=== PATIENT | female | born 1960 | race Caucasian/White ===

== ENCOUNTER 2018-07-17 22:25 | Emergency (ER) | payer BC, OTHER ==
[2018-07-17 22:31] VITALS: BP 143/73; PULSE 66; TEMP 97.8; BMI 23.0
--- NOTE | 2018-07-17 23:04 | PDOC ---
History of Present Illness - General Chief Complaint: Headache Stated Complaint: HEAD INJURY Time Seen by Provider: 07/17/18 22:38 History Source: Patient Exam Limitations: No Limitations - History of Present Illness Initial Comments: 07/17/18 23:04 HISTORY OF PRESENT ILLNESS: This is a 57-year-old woman without significant medical history who presents emergency Department with headache status post being struck in the head with a sign from [employer]. Patient states she did not lose this time was loose one fell and struck her on the head. She denies any loss of consciousness and has full recollection of events prior to during and after the event. Patient has not expressed any nausea and has not vomited since the event. Patient is ambulatory in the emergency department is being accompanied by her . No recent travel or sick contacts. PAST MEDICAL HISTORY: Denies past medical history SURGICAL HISTORY: Denies ALLERGIES: No known drug allergies REVIEW OF SYSTEMS General/Constitutional: Denies fever or chills. Denies weakness, weight change. HEENT: Denies change in vision. Denies ear pain or discharge. Denies sore throat. Cardiovascular: Denies chest pain or shortness of breath. Respiratory: Denies cough, wheezing, or hemoptysis. Gastrointestinal: Denies nausea, vomiting, diarrhea or constipation. Denies rectal bleeding. Genitourinary: Denies dysuria, frequency, or change in urination. Musculoskeletal: Denies joint or muscle swelling or pain. Denies neck or back pain. Skin and breasts: Denies rash or easy bruising. Neurologic: Endorses generalized headache. Denies vertigo, loss of consciousness , or loss of sensation. Psychiatric: Denies depression or anxiety. Endocrine: Denies increased thirst. Denies abnormal weight change. Hematologic/Lymphatic: Denies anemia, easy bleeding, or history of blood clots. Allergic/Immunologic: Denies hives or skin allergy. Denies latex allergy. PHYSICAL EXAM General Appearance: Well-appearing, appropriately dressed. No apparent distress , no intoxication. HEENT: EOMI, PERRLA, normal ENT inspection, normal voice, TMs normal, pharynx normal. No conjunctival pallor. No photophobia, scleral icterus. Neck: Supple. Trachea midline. No tenderness, rigidity, carotid bruit, stridor , lymphadenopathy, or thyromegaly. Respiratory/Chest: Lungs CTAB. No shortness of breath, chest tenderness, respiratory distress, accessory muscle use. No crackles, rales, rhonchi, stridor , wheezing, dullness Cardiovascular: RRR. S1, S2. No JVD, murmur, bradycardia, tachycardia. Vascular Pulses: Dorsalis-Pedis (R): 2+, Dorsalis-Pedis (L): 2+ Gastrointestinal/Abdominal: Normal bowel sounds. Abdomen soft, non-distended. No tenderness or rebound tenderness. No organomegaly, pulsatile mass, guarding, hernia, hepatomegaly, splenomegaly. Lymphatic: No adenopathy, tenderness. Musculoskeletal/Extremities: Normal inspection. FROM of all extremities, normal capillary refill. Pelvis Stable. No CVA tenderness. No tenderness to extremities, pedal edema, swelling, erythema or deformity. Integumentary: Appropriate color, dry, warm. No cyanosis, erythema, jaundice or rash Neurologic: meat soaker II-XII intact. Fully oriented, alert. Appropriate mood/affect. Motor strength 5/5. No appreciable EOM palsy, facial droop or sensory deficit. Past History - Past Medical History Allergies/Adverse Reactions: Allergies Allergy/AdvReac Type Severity Reaction Status Date / Time codeine [Codeine] Allergy Verified 07/17/18 22:32 Home Medications: Ambulatory Orders No Home Medications 0 dose .ROUTE UTDICT 01/25/13 COPD: No - Surgical History Cholecystectomy: Yes - Immunization History Immunization Up to Date: Yes - Suicide/Smoking/Psychosocial Hx Smoking Status: No Smoking History: Never smoked Number of Cigarettes Smoked Daily: 0 Hx Alcohol Use: No Drug/Substance Use Hx: No Substance Use Type: None *Physical Exam - Vital Signs Last Vital Signs Temp Pulse Resp BP Pulse Ox 97.8 F 66 20 143/73 99 07/17/18 22:29 07/17/18 22:29 07/17/18 22:29 07/17/18 22:29 07/17/18 22:29 Medical Decision Making - Medical Decision Making 07/17/18 23:08 A/P: 57-year-old woman with head trauma Alert and oriented 3 Cranial nerves II through XII grossly intact Rapid alternating movements performed without difficulty Finger to nose testing within normal limits EOMI Purulent Gait steady Strength 5/5 in all extremities Speaking evenly and coherently. Given normal neurologic exam, absence of loss of consciousness, nausea or vomiting- it is safe to discharge the patient home without any imaging at this time. All results of physical examination relayed the patient and patient is in agreement with plan for discharge home now and strict return precautions have been provided which patient which she has verbalized. Return precautions have been given to the patient's spouse should she become incoherence or dysarthric at any time. *DC/Admit/Observation/Transfer Diagnosis at time of Disposition: Closed head injury Qualifiers: Encounter type: initial encounter Qualified Code(s): S09.90XA - Unspecified injury of head, initial encounter - Discharge Dispostion Disposition: HOME Condition at time of disposition: Stable Decision to Admit order: No - Referrals Referrals: Eric Méndez MD [Primary Care Provider] - - Patient Instructions Printed Discharge Instructions: DI for Closed Head Injury Additional Instructions: Return to emergency department for worsening headache, nausea, vomiting, dizziness, confusion, difficulty speaking, weakness or any other concerns. - Post Discharge Activity
[2018-07-17] MEDS ORDERED: IBUPROFEN 600 MG TABLET (FP) PO ONE ×2 (23:06→23:07)
== END 2018-07-17 23:14 | disposition home or self-care (01) ==
LOC: JER 22:25 → JERFT 22:25
DX: S09.90XA Unspecified injury of head, initial encounter (principal); W20.1XXA Struck by object due to collapse of building, initial encounter; Y93.89 Activity, other specified; Y92.512 Supermarket, store or market as the place of occurrence of the external cause
CPT/HCPCS: 99281-25

== ENCOUNTER 2021-04-04 19:56 | Emergency (ER) | payer OTHER ==
[2021-04-04 20:03] VITALS: BP 126/72; PULSE 83; TEMP 98.1; BMI 23.3
[2021-04-04] MEDS ORDERED: KETOROLAC TROMETHAMINE 30 MG/1 ML VIAL IM ONE (20:48)
[2021-04-04] MEDS ORDERED: KETOROLAC TROMETHAMINE 30 MG/1 ML VIAL ONE (20:49)
== END 2021-04-04 21:33 | disposition home or self-care (01) ==
LOC: JERFT 19:56
PROC: 3E0233Z Introduction of Anti-inflammatory into Muscle, Percutaneous Approach (ICD-10-PCS; principal; 2021-04-04)
DX: S52.542A Smith's fracture of left radius, initial encounter for closed fracture (principal)
CPT/HCPCS: 73090-TC-LT-FY; 73110-TC-LT-FY; 73130-TC-LT-FY; 99284-25

== ENCOUNTER 2021-04-10 04:28 | Day surgery (SDC) | payer OTHER ==
[2021-04-09 10:07] VITALS: BMI 23.5
[2021-04-10] MEDS ORDERED: BUPIVACAINE HCL 150 ML ONE (08:20)
[2021-04-10] MEDS ORDERED: DEXAMETHASONE SOD PHOSPHATE 10 MG/1 ML VIAL ONE (08:20)
[2021-04-10] MEDS ORDERED: MIDAZOLAM HCL 2 MG/2 ML SINGLE DOSE VIAL ONE ×2 (08:21)
[2021-04-10] MEDS ORDERED: oxyCODONE HCL 5 MG TABLET PO PRN (09:18)
[2021-04-10] MEDS ORDERED: ONDANSETRON 4 MG/2 ML VIAL IVPUSH PRN (09:18)
[2021-04-10] MEDS ORDERED: LACTATED RINGERS SOLUTION 1,000 ML IV SCH (09:30)
[2021-04-10] MEDS ORDERED: ceFAZolin SODIUM 1 GM VIAL IVPB ONE (09:45)
[2021-04-10] MEDS ORDERED: PROPOFOL 20 ML ONE ×2 (10:49)
[2021-04-10] MEDS ORDERED: ROCURONIUM BROMIDE 50 MG/5 ML SYRINGE ONE (12:44)
[2021-04-10 14:41] VITALS: BP 123/70; PULSE 87; TEMP 98.5
== END 2021-04-10 14:00 | disposition home or self-care (01) ==
LOC: JASU-SURG 04:28
PROVIDERS: ATTEND Orthopaedic Surgery
PROC: 0PSJ04Z Reposition Left Radius with Internal Fixation Device, Open Approach (ICD-10-PCS; principal; 2021-04-10 09:00)
DX: S52.512A Displaced fracture of left radial styloid process, initial encounter for closed fracture (principal); X58.XXXA Exposure to other specified factors, initial encounter; Y92.9 Unspecified place or not applicable; Y93.9 Activity, unspecified
CPT/HCPCS: 25608; C1713; 76000-TC-FY; 94760; J1100

== ENCOUNTER 2022-02-14 17:30 | Emergency (ER) | payer OTHER ==
[2022-02-14 17:57] VITALS: BP 130/80; PULSE 68; TEMP 97.8; BMI 23.1
[2022-02-14 22:41] LABS: BASO % 1.2 % (0-2.0); EOS % 6.3 % (0-4.5); HEMOGLOBIN 12.8 GM/dL (10.7-15.3); LYMPH % 32.2 % (8-40); MCH 27.5 pg (25.7-33.7); MCHC 33.8 g/dl (32.0-36.0); MEAN CELL VOLUME 81.3 fl (80-96); MEAN PLT VOLUME 7.6 fl (7.5-11.1); MONO % 7.5 % (3.8-10.2); NEUT % 52.8 % (42.8-82.8); PLATELET COUNT 249 10^3/uL (134-434); RBC 4.67 M/mm3 (3.60-5.2); WHITE BLOOD COUNT 7.3 K/mm3 (4.0-10.0)
[2022-02-14 23:01] LABS: CALCIUM 9.6 mg/dL (8.5-10.1)
[2022-02-14 23:05] LABS: CREATININE 0.7 mg/dL (0.55-1.3)
[2022-02-14 23:07] LABS: BILIRUBIN,TOTAL 0.6 mg/dL (0.2-1); TOT PROT 7.7 g/dl (6.4-8.2)
[2022-02-15] MEDS ORDERED: ACETAMINOPHEN 500 MG TABLET (FP) PO ONE (01:50)
[2022-02-15] MEDS ORDERED: ACETAMINOPHEN 325 MG TABLET (FP) ONE (02:04)
== END 2022-02-15 02:32 | disposition home or self-care (01) ==
LOC: JER 17:30
DX: R91.8 Other nonspecific abnormal finding of lung field (principal); R07.9 Chest pain, unspecified
CPT/HCPCS: 36415; 71046-TC-FY; 71275-TC; 80053; 84484; 85025; 85379; 93005; 93010; 99285-25

== ENCOUNTER 2022-03-08 08:58 | Emergency (ER) | payer OTHER ==
[2022-03-08 09:07] VITALS: TEMP 97.9; BMI 23.1
[2022-03-08] MEDS ORDERED: ONDANSETRON 4 MG/2 ML VIAL IVPUSH ONE (10:00)
[2022-03-08] MEDS ORDERED: SODIUM CHLORIDE 1,000 ML IV STA (10:00)
[2022-03-08] MEDS ORDERED: FAMOTIDINE 20 MG/50 ML IVPB 20 MG/50 ML MG IVPB ONE (10:00)
[2022-03-08] MEDS ORDERED: FAMOTIDINE 10 MG/ML VIAL IVPB ONE (10:15)
[2022-03-08] MEDS ORDERED: ONDANSETRON 4 MG/2 ML VIAL ONE (10:15)
[2022-03-08] MEDS ORDERED: morphine CARPU-JECT 4 MG/1 ML DISP.SYRIN IVPUSH ONE (10:51)
[2022-03-08 10:53] LABS: BASO % 0.4 % (0-2.0); EOS % 0.1 % (0-4.5); HEMATOCRIT 40.5 % (32.4-45.2); HEMOGLOBIN 13.3 GM/dL (10.7-15.3); LYMPH % 9.5 % (8-40); MCH 26.8 pg (25.7-33.7); MCHC 32.7 g/dl (32.0-36.0); MEAN CELL VOLUME 81.9 fl (80-96); MEAN PLT VOLUME 8.1 fl (7.5-11.1); MONO % 2.7 % (3.8-10.2); NEUT % 87.3 % (42.8-82.8); PLATELET COUNT 312 10^3/uL (134-434); RBC 4.95 M/mm3 (3.60-5.2); RDW 14.3 % (11.6-15.6); WHITE BLOOD COUNT 9.7 K/mm3 (4.0-10.0)
[2022-03-08 11:08] LABS: EPI CELLS 3 /uL (0-25.1); HYALINE CASTS 1 /uL (0-3.1); URINE APPEARANCE CLEAR; URINE BACTERIA 6 /uL (0-1359); URINE BILIRUBIN NEGATIVE (NEGATIVE); URINE COLOR YELLOW; URINE GLUCOSE (UA) NEGATIVE (NEGATIVE); URINE KETONE NEGATIVE (NEGATIVE); URINE LEUK ESTERASE NEGATIVE (NEGATIVE); URINE NITRITE NEGATIVE (NEGATIVE); URINE PROTEIN NEGATIVE (NEGATIVE); URINE RBC 11 /uL (0-23.9); URINE UROBILINOGEN 0.2 mg/dL (0.2-1.0); URINE WBC 7 /uL (0-25.8)
[2022-03-08 11:14] LABS: ALBUMIN 4.4 g/dl (3.4-5.0); BLOOD UREA NITROGEN 13.4 mg/dL (7-18)
[2022-03-08 11:16] LABS: CREATININE 0.7 mg/dL (0.55-1.3)
[2022-03-08 11:18] LABS: BILIRUBIN,TOTAL 0.5 mg/dL (0.2-1); TOT PROT 8.2 g/dl (6.4-8.2)
[2022-03-08] MEDS ORDERED: SODIUM CHLORIDE 0.9% 500 ML INFUS.BAG IV ONE (12:24)
[2022-03-08] MEDS ORDERED: LORazepam 2 MG/ML SDV VIAL IVPUSH ONE (13:02)
[2022-03-08 13:43] VITALS: BP 141/80; PULSE 78
== END 2022-03-08 15:14 | disposition home or self-care (01) ==
LOC: JER 08:58
PROC: 3E033GC Introduction of Other Therapeutic Substance into Peripheral Vein, Percutaneous Approach (ICD-10-PCS; principal; 2022-03-08)
PROC: 3E033NZ Introduction of Analgesics, Hypnotics, Sedatives into Peripheral Vein, Percutaneous Approach (ICD-10-PCS; 2022-03-08)
PROC: 3E033NZ Introduction of Analgesics, Hypnotics, Sedatives into Peripheral Vein, Percutaneous Approach (ICD-10-PCS; 2022-03-08)
PROC: 3E033GC Introduction of Other Therapeutic Substance into Peripheral Vein, Percutaneous Approach (ICD-10-PCS; 2022-03-08)
PROC: 3E0337Z Introduction of Electrolytic and Water Balance Substance into Peripheral Vein, Percutaneous Approach (ICD-10-PCS; 2022-03-08)
DX: R10.13 Epigastric pain (principal)
CPT/HCPCS: 36415; 71045-TC-FY; 74177-TC; 80053; 81003; 83036; 83690; 84484; 85025; 93005; 93010; 99285-25; Q9967

== ENCOUNTER 2022-03-08 21:58 | Inpatient (IN) | payer OTHER ==
[2022-03-08] MEDS ORDERED: MAG HYDROX/AL HYDROX/SIMETH -MYLANTA- ORAL SUSPENSION PO ONE (22:51)
[2022-03-08] MEDS ORDERED: LIDOCAINE VISCOUS 2% ORAL/TOP 15 ML UNIT-DOSE CUP MM ONE ×2 (22:51→23:21)
[2022-03-08] MEDS ORDERED: FAMOTIDINE 20 MG TABLET PO ONE (22:51)
[2022-03-08] MEDS ORDERED: ONDANSETRON *ODT* 4 MG TABLET SL ONE (22:51)
[2022-03-08] MEDS ORDERED: FAMOTIDINE 20 MG TABLET ONE ×2 (23:01→23:23)
[2022-03-08] MEDS ORDERED: ONDANSETRON *ODT* 4 MG TABLET ONE (23:01)
[2022-03-08] MEDS ORDERED: MAG HYDROX/AL HYDROX/SIMETH 30 ML UNIT-DOSE CUP ONE ×2 (23:02→23:23)
[2022-03-08] MEDS ORDERED: LIDOCAINE VISCOUS 2% ORAL/TOP 15 ML UNIT-DOSE CUP ONE ×2 (23:02→23:23)
[2022-03-08] MEDS ORDERED: ONDANSETRON 4 MG/2 ML VIAL IVPUSH ONE ×2 (23:09→23:27)
[2022-03-08] MEDS ORDERED: FAMOTIDINE 20 MG/50 ML IVPB 20 MG/50 ML MG IVPB ONE ×2 (23:10→23:27)
[2022-03-08] MEDS ORDERED: MAG HYDROX/AL HYDROX/SIMETH 30 ML UNIT-DOSE CUP PO ONE (23:21)
[2022-03-08] MEDS ORDERED: FAMOTIDINE 10 MG TABLET PO ONE (23:21)
[2022-03-08] MEDS ORDERED: SODIUM CHLORIDE 1,000 ML IV STA (23:33)
[2022-03-08] MEDS ORDERED: morphine SULFATE 4 MG/ML VIAL ONE (23:34)
[2022-03-08] MEDS ORDERED: morphine CARPU-JECT 4 MG/1 ML DISP.SYRIN IVPUSH ONE (23:34)
[2022-03-08] MEDS ORDERED: ONDANSETRON 4 MG/2 ML VIAL ONE (23:34)
[2022-03-08] MEDS ORDERED: FAMOTIDINE 10 MG/ML VIAL IVPB ONE (23:35)
[2022-03-09 00:43] LABS: EOS % 0.1 % (0-4.5); HEMATOCRIT 39.5 % (32.4-45.2); HEMOGLOBIN 12.9 GM/dL (10.7-15.3); LYMPH % 6.2 % (8-40); MCH 26.6 pg (25.7-33.7); MCHC 32.7 g/dl (32.0-36.0); MEAN CELL VOLUME 81.3 fl (80-96); MEAN PLT VOLUME 8.2 fl (7.5-11.1); MONO % 4.8 % (3.8-10.2); NEUT % 88.9 % (42.8-82.8); PLATELET COUNT 301 10^3/uL (134-434); RBC 4.86 M/mm3 (3.60-5.2); RDW 13.9 % (11.6-15.6); WHITE BLOOD COUNT 13.7 K/mm3 (4.0-10.0)
[2022-03-09 00:54] LABS: INR 1.11 (0.83-1.09); PROTHROMBIN TIME (PATIENT) 12.8 SEC (9.7-13.0)
[2022-03-09 00:56] LABS: ACTIVATED PTT 30.8 SECONDS (25.2-36.5)
[2022-03-09 01:01] LABS: CALCIUM 9.7 mg/dL (8.5-10.1)
[2022-03-09 01:02] LABS: ALBUMIN 4.4 g/dl (3.4-5.0); BLOOD UREA NITROGEN 8.8 mg/dL (7-18); MAGNESIUM 1.9 mg/dL (1.8-2.4)
[2022-03-09 01:02] LABS: LIPASE 159 U/L (73-393)
[2022-03-09 01:05] LABS: CREATININE 0.6 mg/dL (0.55-1.3)
[2022-03-09 01:06] LABS: TOT PROT 8.2 g/dl (6.4-8.2)
[2022-03-09 01:07] LABS: BILIRUBIN,TOTAL 0.9 mg/dL (0.2-1)
[2022-03-09 02:06] LABS: LACTIC ACID 4.3 mmol/L (0.4-2.0)
[2022-03-09] MEDS ORDERED: morphine CARPU-JECT 4 MG/1 ML DISP.SYRIN IVPUSH ONE (02:46)
[2022-03-09] MEDS ORDERED: morphine SULFATE 4 MG/ML VIAL ONE (02:47)
[2022-03-09] MEDS ORDERED: LACTATED RINGERS SOLUTION 1000 ML INFUS.BAG IV ONE ×2 (03:51→03:56)
[2022-03-09] MEDS ORDERED: SODIUM CHLORIDE 0.9% 500 ML INFUS.BAG IV ONE (03:56)
[2022-03-09] MEDS ORDERED: ACETAMINOPHEN 1000 MG/100 ML BAG IVPB ONE (04:02)
[2022-03-09] MEDS ORDERED: ACETAMINOPHEN INJECTION 100 ML IVPB ONE (04:02)
[2022-03-09 04:56] LABS: CHOLESTEROL 199 mg/dL (50-200); TRIGLYCERIDES 63 mg/dL (0-150)
[2022-03-09 04:57] LABS: LDL CHOLESTEROL (ONLY SJRH) 94 mg/dL (5-100)
[2022-03-09 04:59] LABS: HDL CHOLESTEROL 91 mg/dL (40-60)
[2022-03-09] MEDS: SODIUM CHLORIDE 1,000 ML IV SCH ×2 (06:25→15:14)
[2022-03-09 07:17] LABS: LACTIC ACID 2.9 mmol/L (0.4-2.0)
[2022-03-09] MEDS: ENOXAPARIN NA (PORCINE) 40 MG/0.4 ML DISP.SYRIN SQ SCH (10:18)
[2022-03-09 11:41] VITALS: BMI 22.5
[2022-03-09] MEDS ORDERED: ONDANSETRON 4 MG/2 ML VIAL IVPUSH PRN (19:38)
[2022-03-09] MEDS: morphine SULFATE 4 MG/ML VIAL IVPUSH PRN (20:00)
[2022-03-09] MEDS: LACTATED RINGERS SOLUTION 1,000 ML/1,000 ML INFUS.BAG IV SCH (20:00)
[2022-03-10] MEDS: LACTATED RINGERS SOLUTION 1,000 ML/1,000 ML INFUS.BAG IV SCH ×3 (01:01→11:08)
[2022-03-10] MEDS: ROSUVASTATIN CA 10 MG TABLET PO SCH ×2 (01:09→21:11)
[2022-03-10] MEDS: morphine SULFATE 4 MG/ML VIAL IVPUSH PRN ×5 (02:08→21:11)
[2022-03-10] MEDS: SODIUM CHLORIDE 1,000 ML IV SCH (06:17)
[2022-03-10 09:18] LABS: HEMATOCRIT 36.2 % (32.4-45.2); HEMOGLOBIN 11.8 GM/dL (10.7-15.3); MCH 26.3 pg (25.7-33.7); MCHC 32.5 g/dl (32.0-36.0); MEAN CELL VOLUME 80.9 fl (80-96); MEAN PLT VOLUME 8.5 fl (7.5-11.1); PLATELET COUNT 210 10^3/uL (134-434); RBC 4.47 M/mm3 (3.60-5.2); RDW 13.8 % (11.6-15.6); WHITE BLOOD COUNT 12.9 K/mm3 (4.0-10.0)
[2022-03-10 09:35] LABS: CHLORIDE 96 mmol/L (98-107); SODIUM 133 mmol/L (136-145)
[2022-03-10 09:42] LABS: BLOOD UREA NITROGEN 7.4 mg/dL (7-18); CALCIUM 8.7 mg/dL (8.5-10.1); CO2 30 mmol/L (21-32); GLUCOSE,RANDOM 84 mg/dL (74-106); LIPASE 72 U/L (73-393)
[2022-03-10 09:44] LABS: CREATININE 0.4 mg/dL (0.55-1.3); PHOSPHOROUS 2.3 mg/dL (2.5-4.9); SGOT/AST 34 U/L (15-37); SGPT/ALT 21 U/L (13-61)
[2022-03-10 09:45] LABS: BILIRUBIN,TOTAL 1.5 mg/dL (0.2-1); TOT PROT 6.4 g/dl (6.4-8.2)
[2022-03-10 09:46] LABS: ALK PHOS 79 U/L (45-117)
[2022-03-10] MEDS: ENOXAPARIN NA (PORCINE) 40 MG/0.4 ML DISP.SYRIN SQ SCH (09:53)
[2022-03-10 10:18] LABS: ALBUMIN 3.3 g/dl (3.4-5.0); ANION GAP 7 MMOL/L (8-16)
[2022-03-10] MEDS ORDERED: POTASSIUM CHLORIDE 20 MEQ PREMIX IVPB 100 ML IVPB ONE ×2 (10:34→10:37)
[2022-03-10] MEDS ORDERED: POTASSIUM PHOSPHATE 15 MM in SODIUM CHLORIDE 250 ML IVPB ONE (10:45)
[2022-03-10] MEDS ORDERED: POTASSIUM CHLORIDE 10 MEQ PREMIX IVPB (POTASSIUM RIDER) IVPB ONE (11:00)
[2022-03-10] MEDS ORDERED: KCL 10 MEQ IVPB 10 MEQ/100 ML INFUS.BAG IVPB SCH (13:15)
[2022-03-10 21:21] LABS: CALCIUM 8.8 mg/dL (8.5-10.1)
[2022-03-10 21:26] LABS: CREATININE 0.4 mg/dL (0.55-1.3)
[2022-03-10] MEDS ORDERED: POTASSIUM CHLORIDE TABS 20 MEQ TABLET.ER (FP) PO ONE (21:44)
[2022-03-11] MEDS: LACTATED RINGERS SOLUTION 1,000 ML/1,000 ML INFUS.BAG IV SCH ×2 (02:57→23:36)
[2022-03-11] MEDS: morphine SULFATE 4 MG/ML VIAL IVPUSH PRN ×3 (03:50→22:49)
[2022-03-11 06:57] LABS: HEMATOCRIT 34.1 % (32.4-45.2); HEMOGLOBIN 10.9 GM/dL (10.7-15.3); MCH 26.5 pg (25.7-33.7); MEAN CELL VOLUME 82.6 fl (80-96); MEAN PLT VOLUME 8.2 fl (7.5-11.1); PLATELET COUNT 198 10^3/uL (134-434); RBC 4.13 M/mm3 (3.60-5.2); RDW 13.8 % (11.6-15.6); WHITE BLOOD COUNT 12.2 K/mm3 (4.0-10.0)
[2022-03-11 07:14] LABS: BLOOD UREA NITROGEN 14.2 mg/dL (7-18); CALCIUM 8.7 mg/dL (8.5-10.1); MAGNESIUM 2.1 mg/dL (1.8-2.4)
[2022-03-11 07:17] LABS: CREATININE 0.4 mg/dL (0.55-1.3); PHOSPHOROUS 2.1 mg/dL (2.5-4.9)
[2022-03-11 07:19] LABS: BILIRUBIN,TOTAL 1.1 mg/dL (0.2-1)
[2022-03-11] MEDS ORDERED: NAPH,MB-DB/K PH,MBDB POWDER PACKET PO ONE (08:10)
[2022-03-11] MEDS: ENOXAPARIN NA (PORCINE) 40 MG/0.4 ML DISP.SYRIN SQ SCH (09:04)
[2022-03-11] MEDS ORDERED: ACETAMINOPHEN 325 MG TABLET (FP) PO PRN (15:55)
[2022-03-11] MEDS: ROSUVASTATIN CA 10 MG TABLET PO SCH (22:49)
[2022-03-12] MEDS: morphine SULFATE 4 MG/ML VIAL IVPUSH PRN (06:17)
[2022-03-12] MEDS: LACTATED RINGERS SOLUTION 1,000 ML/1,000 ML INFUS.BAG IV SCH ×3 (06:49→23:46)
[2022-03-12 07:53] LABS: HEMATOCRIT 31.2 % (32.4-45.2); HEMOGLOBIN 10.7 GM/dL (10.7-15.3); MCH 27.6 pg (25.7-33.7); MCHC 34.1 g/dl (32.0-36.0); MEAN CELL VOLUME 81.1 fl (80-96); MEAN PLT VOLUME 8.1 fl (7.5-11.1); PLATELET COUNT 195 10^3/uL (134-434); RBC 3.85 M/mm3 (3.60-5.2); RDW 13.7 % (11.6-15.6); WHITE BLOOD COUNT 10.3 K/mm3 (4.0-10.0)
[2022-03-12 08:16] LABS: ALBUMIN 2.6 g/dl (3.4-5.0); BLOOD UREA NITROGEN 5.5 mg/dL (7-18); CALCIUM 8.3 mg/dL (8.5-10.1)
[2022-03-12 08:19] LABS: CREATININE 0.3 mg/dL (0.55-1.3)
[2022-03-12 08:20] LABS: BILIRUBIN,TOTAL 1.2 mg/dL (0.2-1); TOT PROT 5.8 g/dl (6.4-8.2)
[2022-03-12] MEDS: ENOXAPARIN NA (PORCINE) 40 MG/0.4 ML DISP.SYRIN SQ SCH (09:54)
[2022-03-12] MEDS ORDERED: CYCLOBENZAPRINE HCL 10 MG TABLET (FP) PO ONE (11:12)
[2022-03-12] MEDS: ROSUVASTATIN CA 10 MG TABLET PO SCH (21:22)
[2022-03-13 08:50] LABS: HEMATOCRIT 31.7 % (32.4-45.2); HEMOGLOBIN 10.7 GM/dL (10.7-15.3); MCH 27.4 pg (25.7-33.7); MCHC 33.7 g/dl (32.0-36.0); MEAN CELL VOLUME 81.4 fl (80-96); MEAN PLT VOLUME 7.9 fl (7.5-11.1); PLATELET COUNT 213 10^3/uL (134-434); RBC 3.89 M/mm3 (3.60-5.2); RDW 13.6 % (11.6-15.6); WHITE BLOOD COUNT 7.2 K/mm3 (4.0-10.0)
[2022-03-13] MEDS ORDERED: POLYETHYLENE GLYCOL (HEALTHYLAX) 3350 17 GM PACKET PO ONE (09:09)
[2022-03-13] MEDS ORDERED: SENNOSIDES/DOCUSATE COMBO (SENNA PLUS) TABLET (UD) PO ONE (09:10)
[2022-03-13 09:13] LABS: ALBUMIN 2.6 g/dl (3.4-5.0); BLOOD UREA NITROGEN 7.7 mg/dL (7-18); CALCIUM 8.5 mg/dL (8.5-10.1)
[2022-03-13 09:14] LABS: CREATININE 0.4 mg/dL (0.55-1.3)
[2022-03-13 09:16] LABS: BILIRUBIN,TOTAL 0.7 mg/dL (0.2-1); TOT PROT 5.7 g/dl (6.4-8.2)
[2022-03-13] MEDS: LACTATED RINGERS SOLUTION 1,000 ML/1,000 ML INFUS.BAG IV SCH (09:58)
[2022-03-13] MEDS: ENOXAPARIN NA (PORCINE) 40 MG/0.4 ML DISP.SYRIN SQ SCH (09:59)
[2022-03-13] MEDS ORDERED: CYCLOBENZAPRINE HCL 10 MG TABLET (FP) PO ONE (11:43)
[2022-03-13] MEDS ORDERED: CYCLOBENZAPRINE HCL 10 MG TABLET (FP) PO SCH (11:46)
[2022-03-13] MEDS: ROSUVASTATIN CA 10 MG TABLET PO SCH (22:13)
[2022-03-13] MEDS: CYCLOBENZAPRINE HCL 5 MG TABLET PO SCH (22:13)
[2022-03-14 08:42] LABS: HEMATOCRIT 31.1 % (32.4-45.2); HEMOGLOBIN 10.6 GM/dL (10.7-15.3); MCH 27.6 pg (25.7-33.7); MEAN CELL VOLUME 81.3 fl (80-96); MEAN PLT VOLUME 7.5 fl (7.5-11.1); PLATELET COUNT 245 10^3/uL (134-434); RBC 3.82 M/mm3 (3.60-5.2); RDW 13.8 % (11.6-15.6); WHITE BLOOD COUNT 6.2 K/mm3 (4.0-10.0)
[2022-03-14 09:00] LABS: BLOOD UREA NITROGEN 7.1 mg/dL (7-18); CALCIUM 8.6 mg/dL (8.5-10.1)
[2022-03-14 09:02] LABS: ALBUMIN 2.8 g/dl (3.4-5.0); CREATININE 0.4 mg/dL (0.55-1.3)
[2022-03-14 09:04] LABS: BILIRUBIN,TOTAL 0.6 mg/dL (0.2-1); TOT PROT 6.2 g/dl (6.4-8.2)
[2022-03-14] MEDS: ENOXAPARIN NA (PORCINE) 40 MG/0.4 ML DISP.SYRIN SQ SCH (09:31)
[2022-03-14] MEDS: CYCLOBENZAPRINE HCL 5 MG TABLET PO SCH (09:31)
[2022-03-14] MEDS: LACTATED RINGERS SOLUTION 1,000 ML/1,000 ML INFUS.BAG IV SCH (09:31)
[2022-03-14 13:36] VITALS: BP 108/51; PULSE 94; TEMP 98.3
== END 2022-03-14 19:13 | disposition home or self-care (01) | DRG 439 ==
LOC: JER 21:58 → JERBED 03-09 03:57 → J6S 03-09 09:20
PROVIDERS: ADMIT Internal Medicine; ATTEND Internal Medicine
DX: K85.90 Acute pancreatitis without necrosis or infection, unspecified (principal); E87.2 Acidosis; E78.5 Hyperlipidemia, unspecified; D72.829 Elevated white blood cell count, unspecified; E87.6 Hypokalemia
CPT/HCPCS: 36415; 71275-TC; 74174-TC; 80048; 80053; 80061; 83036; 83605; 83690; 83735; 84100; 84484; 85025; 85027; 85610; 85730; 86140; 86850; 86900; 86901; 93005; 93010; 97116-GP; 97162-GP; 99284-25; C9803-CS; Q0162; U0003; U0005